=== PATIENT | female | born 1995 | race Two or more races ===

== ENCOUNTER 2024-12-19 04:06 | Inpatient (IN) | payer BC, MEDICAID ==
[2024-12-18 11:35] LABS: Hematocrit 37.1 % (36.0-46.0); Hemoglobin 12.6 g/dL (12.2-16.2); Mean Corpuscular Hemoglobin 29.0 pg (28.0-32.0); Mean Corpuscular Volume 85.4 fL (80.0-100.0)
[2024-12-18 11:36] LABS: Urine Amorphous Crystal FEW /hpf (None Seen); Urine Protein, UAD Negative (Negative)
[2024-12-18 11:50] LABS: INR 0.93 (0.9-1.15); Partial Thromboplastin Time 26.1 SEC (24.5-34.5); Prothrombin Time 9.9 sec (9.3-11.8)
[2024-12-18 11:51] LABS: Amphetamine Screen, Urine Neg (NEGATIVE); Barbiturate Scree,Urine Neg (NEGATIVE); Benzodiazephine Screen, Urine Neg (NEGATIVE); Cannabinoid Screen, Urine Neg (NEGATIVE); Cocaine Screen, Urine Neg (NEGATIVE); Opiate Scree,Urine Neg (NEGATIVE); Phencyclidine Screen, Urine Neg (NEGATIVE)
[2024-12-18 11:52] LABS: Alanine Aminotransferase 21 U/L (7-40); Albumin 4.2 g/dL (3.2-4.8); Anion Gap 11 (5-15); BUN/Creatinine Ratio 10.2 (10.0-20.0); Calcium 10.3 mg/dL (8.7-10.4); Carbon Dioxide 22 mmol/L (20-31); Chloride 106 mmol/L (98-107); Glucose 88 mg/dL (74-106); Potassium 3.5 mmol/L (3.5-5.1); Sodium 139 mmol/L (136-145); Total Protein 6.7 g/dL (5.7-8.2)
[2024-12-18 11:53] LABS: Alkaline Phosphatase 277 U/L (46-116); Bilirubin, Total 0.3 mg/dL (0.2-1.0); Blood Urea Nitrogen 6 mg/dL (9-23)
[2024-12-18 12:01] LABS: Total Cells Counted 100.0 (100)
[~2024-12-19] VITALS: Ht 162.6 cm; Wt 68.0 kg
[2024-12-19] VITALS (16 sets, daily range): BP systolic 109–133; BP diastolic 51–81; PULSE 83–105; RESP 14–21; O2SAT 92–97
[2024-12-19] MEDS ORDERED: LACTATED RINGER'S 1,000 ML IV SCH (04:15)
--- NOTE | 2024-12-19 05:15 | DVH ---
LIMITED OB ULTRASOUND > 14 WKS: HISTORY: lie TECHNIQUE: Multiple real-time grayscale images of the gravid uterus with duplex Doppler color flow an d M-mode spectral analysis. TRANSDUCER: Transabdominal COMPARISON: None Findings/ IMPRESSION: Breech presentation. Anterior placenta. heart rate is 135 beats per minute.
[2024-12-19] MEDS: LACTATED RINGER'S 1,000 ML IV ONE (06:20)
[2024-12-19] MEDS: ceFAZolin 2 GM/D5W50ml 50 ML IV ONE (06:44)
[2024-12-19] MEDS ORDERED: fentaNYL CITRATE 100 MCG/2 ML VL ONE (07:04)
[2024-12-19] MEDS ORDERED: MORPHINE SULF PF 5 MG/10 ML VIAL ONE (07:04)
[2024-12-19] MEDS ORDERED: OXYTOCIN 10UNIT/ML 1ML VIAL ONE (07:06)
[2024-12-19] MEDS ORDERED: ONDANSETRON HCL 4 MG/2 ML VIAL ONE (07:09)
[2024-12-19] MEDS ORDERED: ONDANSETRON HCL 4 MG/2 ML VIAL IV PRN ×2 (07:15→08:30)
[2024-12-19] MEDS: LACT. RINGERS/OXYTOCIN 20UNITS 1,000 ML IV ONE (07:15)
[2024-12-19] MEDS ORDERED: ceFAZolin 1GM/50ML 50 ML IV SCH (07:15)
[2024-12-19] MEDS ORDERED: CARBOPROST TROMETHAMINE 250 MCG/1ML VIAL IM ONE (07:57)
[2024-12-19] MEDS ORDERED: KETOROLAC TROMETH 30 MG/ML 1ML VIAL IV PRN ×2 (08:30→16:45)
[2024-12-19] MEDS ORDERED: NALOXONE HCL 0.4 MG/ML VIAL IV PRN (08:30)
[2024-12-19] MEDS ORDERED: diphenhdrAMINE HCL 50 MG/1 ML VL IV PRN (08:30)
[2024-12-19] MEDS ORDERED: ACETAMINOPHEN IV 100 ML IV ONE (08:49)
[2024-12-19] MEDS: ACETAMINOPHEN IV 1000 MG/100ML (10MG/ML) IV PRN ×2 (09:00→17:47)
--- NOTE | 2024-12-19 13:43 | DVHOP2 ---
Operative Report DATE OF OPERATION: 12/19/24 PREOPERATIVE DIAGNOSES: Term Pregnancyin labor ,breech presentation ,deisres pcs POSTOPERATIVE DIAGNOSES: same SURGEON: Ailyn Buenrostro D.O./moise ANESTHESIOLOGIST: jared TYPE OF ANESTHESIA : spinal CONSENT: The patient was informed of the risks and benefits of the procedure. The patient was informed of the risks and benefits of the procedure. These include but are not limited to , complications of anesthesia, postoperative infection, incomplete relief of symptoms, recurrence of symptoms, damage to blood vessels, nerves and tendons, deep venous thrombosis, pulmonary embolism and possible need for repeat surgery in the future. FINDINGS: Baby [b] with Apgars of [8] and [9]. Grossly normal appearing tubes and ovaries.breech PROCEDURES: Primary low transverse section. PROCEDURE IN DETAIL: The patient was taken to the operating room. She already had an epidural in place. She was then placed in supine position with a leftward tilt. A Pfannenstiel skin incision was made 2 cm above the symphysis pubis. This incision was carried to the underlying layer of fascia. The fascia was nicked in the midline. The incision was extended laterally. The superior aspect of the fascial incision was grasped and elevated. The same procedure was done to the inferior aspect of the fascial incision. The rectus muscles were then in the midline. Peritoneum was identified and entered. Peritoneal incision was extended superiorly and inferiorly with good visualization of the bladder. Bladder blade was inserted. Vesicouterine peritoneum was identified and entered. Lower uterine segment was incised in a transverse fashion. The was delivered from breech presentation. Infant was baby [b] with Apgars [8] and [9]. Placenta was then removed manually. Uterus was exteriorized and cleared of all clots and debris. The incision was repaired using 0 Vicryl in a double-layered fashion. No bleeding was noted. Uterus was then returned to the abdomen. The gutters were cleared off all clots and debris. Peritoneum was closed using 0 Vicryl, fascia was closed using 0 Maxon, and skin was closed using walter. The patient tolerated the procedure well. She was taken to the recovery room in stable condition. ESTIMATED BLOOD LOSS: Estimated blood loss was noted to be 500 mL. Visit Coding OBGYN Date of Service: Dec 19, 2024 Billing Provider: AILYN BUENROSTRO DO ENTRY LEVEL ACCOUNTING CLERK Common Visit Codes: [id number] OBS CARE (HIGH) ENTRY LEVEL ACCOUNTING CLERK Procedure Codes: [id number] DELIVERY ONLY AILYN BUENROSTOR DO Dec 19, 2024 13:43
--- NOTE | 2024-12-19 14:11 | POSTOP ---
Post-Operative Note Post-Operative Note Preop Diagnosis 39wks in labor,breech,desires pcs Postop Diagnosis: same Operation performed pltcs Specimen baby boy,apgars 8-9,breech Anesthesia: Regional Anesthesiologist: coleman Blood Loss(fluid mgmt) 500ml Surgeon Cheyenne Buenrostro Shutdown Coordinator moise Implant na Complications & Mgmt none Date 12/19/24 Time 14:04 Visit Coding OBGYN Date of Service: Dec 19, 2024 Billing Provider: CHEYENNE BUENROSTRO DO RESPIRATORY DIRECTOR Common Visit Codes: [id number] OBS CARE (HIGH) RESPIRATORY DIRECTOR Procedure Codes: [id number] DELIVERY ONLY CHEYENNE BUENROSTRO DO Dec 19, 2024 14:11
--- NOTE | 2024-12-19 14:14 | DVHHP2 ---
OB CC & HPI Date Date of Admission: Dec 19, 2024 Patient Identification: : 1 Para: 0 EDC: Dec 26, 2024 EGA: 39wks Chief Complaints: Reason for admission: active labor Indication for : other (desoires pcs for breech) Admission Nurse Assessment Rev: No History of Present Complaints pt is admitted for pcs due to breech ,she is in early labor .all options d/w pt including ecv ,pt wishes to proceed with pcs Past Medical History Cardiac: No pertinent Hx Pulmonary: No pertinent Hx Central Nervous System: No pertinent Hx GI: No pertinent Hx Hemotology/Oncology: No pertinent Hx Hepatobiliary: No pertinent Hx Psychiatric: No pertinent Hx Musculoskeletal: No pertinent Hx Rheumotologic: No pertinent Hx Infectious Disease: No peritnent Hx ENT: No pertinent Hx Renal/: No pertinent Hx Endocrine: No pertinent Hx Dermatology: No pertinent Hx Past Surgical History: No pertinent Hx OB History OB History Care: Good Care Ultrasounds: Normal mid trimester US Obstetrical Complications: None Medical Complications: None Allergies: Coded Allergies: NO KNOWN ALLERGIES (Unverified , 12/19/24) Current Medications Current Medications Medications (Trade) Dose Ordered Sig/Gian Route PRN Reason Start Time Stop Time Status Last Admin Lactated Ringer's 1,000 ml @ 125 mls/hr Q8H IV 12/19/24 04:15 Ondansetron HCl (Zofran) 4 mg Q4HP PRN IV NAUSEA / VOMITING 12/19/24 07:15 Cefazolin Sodium 50 ml @ 100 mls/hr Q8H IV 12/19/24 07:15 12/19/24 12:23 DC Diphenhydramine HCl (Benadryl Injection) 25 mg Q4HP PRN IV FOR ITCHING 12/19/24 08:30 Ondansetron HCl (Zofran) 4 mg Q4HP PRN IV NAUSEA / VOMITING 12/19/24 08:30 12/19/24 12:00 DC Naloxone HCl (Narcan) 0.2 mg Q5M PRN IV For respirations < than 10/min 12/19/24 08:30 12/19/24 08:49 DC Dexamethasone Sodium Phosphate (Decadron Injection) 10 mg SEO STRATEGIST PRN IV FOR ITCHING 12/19/24 08:30 12/19/24 08:49 DC Ketorolac Tromethamine (Toradol Injection) 30 mg Q6HP PRN IV MODERATE PAIN (4-6 PAIN SCALE) 12/19/24 08:30 12/24/24 08:29 Acetaminophen (Ofirmev) 1,000 mg [id number] PRN IV PAIN SCALE 1-3 OR TEMP>100.4 12/19/24 09:00 12/19/24 09:00 DC 12/19/24 09:00 Cefazolin Sodium 50 ml @ 100 mls/hr Q8H IV 12/19/24 15:15 12/20/24 07:44 Acetaminophen (Ofirmev) 1,000 mg Q8HPRN PRN IV PAIN SCALE 1-3 OR TEMP>100.4 12/19/24 12:30 12/20/24 06:01 Family & Social History Family/Social History Blood Type: Unknown Rubella: unknown RPR/VDRL: Negative GBS Status: Negative HBsAG: Negative Review of Systems Constitutional: No symptom reported Ears, Nose, & Throat: No symptom reported Eyes: No symptom reported Pulmonary/Respiratory: No symptom reported Cardiovascular: No symptom reported Gastrointestinal: No symptom reported Genitourinary: No symptom reported Musculoskeletal: No symptom reported Skin: No symptom reported Psychiatric: No symptom reported Endocrine: No symptom reported Hemotologic/Lymphatic: No symptom reported OB Admission Exam Physical Exam Vitals: Vital Signs Date Time Temp Pulse Resp B/P (MAP) Pulse Ox O2 Delivery O2 Flow Rate FiO2 12/19/24 09:10 82 15 121/69 (86) 97 12/19/24 08:21 Room Air 12/19/24 08:21 94 12/19/24 08:21 97.2 97.2 HEENT: TMs Normal, Fontanelles Normal, Nasal Mucosa Normal, Eyes non-injected, Oropharynx Normal, PERRLA, Moist Membranes, EOMI Heart: Rhythm Normal Lungs: Clear Abdomen: Non tender Extremities: Normal Reflexes: Normal Cervical Dilatation: 1cm Effacement: 25% Station: -2 Membranes: Intact Heart Rate: 130's Accelerations: Accelerations Present Decelerations: No Decelerations Short Term Variability: Present Fci Variability: Average (6-25) Contractions on Admission: < 5 Minutes Apart Intensity: Moderate OB Plan Plan Admitting Diagnosis: primary csection for breech presentation 39wks in early labor Plan: Section Other Plan: infpormed consent obtained Visit Coding OBGYN Date of Service: Dec 19, 2024 Billing Provider: CHEYENNE NGO DO MANAGER LOGISTIC Common Visit Codes: [id number] OBS CARE (HIGH) MANAGER LOGISTIC Procedure Codes: 94286-87- NON-STRESS TEST CHEYENNE NGO DO Dec 19, 2024 14:14
[2024-12-19] MEDS ORDERED: DOCU-94 PO (14:55)
[2024-12-19] MEDS ORDERED: HYDR-4072 PO (14:55)
[2024-12-19] MEDS ORDERED: IBUP-1456 PO ×2 (14:55→23:47)
[2024-12-19] MEDS: ceFAZolin 1GM/50ML 50 ML IV SCH (15:19)
[2024-12-19] MEDS: SIMETHICONE 80 MG CHEWABLE TABLET PO SCH (17:34)
[2024-12-19] MEDS: PSEUDOEPHEDRINE HCL 30 MG TAB PO ONE (17:34)
[2024-12-19 21:43] LABS: Hematocrit 29.7 % (36.0-46.0); Hemoglobin 10.0 g/dL (12.2-16.2); Mean Corpuscular Hemoglobin 28.7 pg (28.0-32.0); Mean Corpuscular Volume 84.9 fL (80.0-100.0); Nucleated Red Blood Cells % 0.0 %
[2024-12-19] MEDS ORDERED: PREN-96 PO (23:47)
[2024-12-19] MEDS ORDERED: FER325T PO (23:47)
[2024-12-20] VITALS (11 sets, daily range): BP systolic 108–131; BP diastolic 52–81; PULSE 85–98; RESP 15–18; TEMP 98–98.5; O2SAT 97–99
--- NOTE | 2024-12-20 00:05 | DVHPN2 ---
Progress Note Date Seen: Dec 20, 2024 Subjective S: bleeding is less, advancing diet as tolerated, denies lightheaded/dizziness, pain well controlled with medications, no concerns with urinating, no flatus/BM yet, ambulating well, well vital signs Vital Sign Date Time Temp Pulse Resp B/P (MAP) Pulse Ox O2 Delivery O2 Flow Rate FiO2 12/19/24 19:31 90 16 97 12/19/24 18:30 Room Air 12/19/24 09:30 0.0 12/19/24 09:10 121/69 (86) 12/19/24 08:21 94 12/19/24 08:21 97.2 97.2 Total Intake and Output 12/19/24 12/19/24 12/20/24 15:00 23:00 07:00 Output Total 875 ml 200 ml Balance -875 ml -200 ml medications Current Medications Medications Dose Ordered Sig/Gian Route Start Time Stop Time Status Last Admin Dose Admin Lactated Ringer's 1,000 ml @ 125 mls/hr Q8H IV 12/19/24 04:15 Ondansetron HCl 4 mg Q4HP PRN IV 12/19/24 07:15 Diphenhydramine HCl 25 mg Q4HP PRN IV 12/19/24 08:30 Ketorolac Tromethamine 30 mg Q6HP PRN IV 12/19/24 08:30 12/24/24 08:29 Cancel Cefazolin Sodium 50 ml @ 100 mls/hr Q8H IV 12/19/24 15:15 12/20/24 07:44 12/19/24 23:21 100 MLS/HR Acetaminophen 1,000 mg Q8HPRN PRN IV 12/19/24 12:30 12/20/24 06:01 12/19/24 17:47 1,000 MG Ketorolac Tromethamine 30 mg Q6HPRN PRN IV 12/19/24 16:45 12/24/24 16:44 Dimethicone 80 mg QID PO 12/19/24 18:00 12/19/24 22:12 80 MG laboratory and microbiology Laboratory Tests 12/19/24 21:23 12/18/24 11:05 Test 12/18/24 11:05 Range/Units Serum Glucose 88 74-106 mg/dL Objective O: VSS Chest: heart sounds normal and lung sounds clear bilaterally Abd: soft, non-tender, fundus at U/firm/midline, active bowel sounds, no rebound or guarding Incision: sylke dressing open to air, clean/dry/intact Ext: Non-tender, No edema, 2+ BLE DTRs Lochia: minimal See lab results Problems(with codes): (1) Precipitous drop in hematocrit (2) S/P primary low transverse Assessment/Plan A: 29yo now POD#1 s/p primary for breech -continue with routine post-op PP care Plan discussed with: Patient, Spouse Visit Coding OBGYN Date of Service: Dec 20, 2024 Billing Provider: MER PARKER CNM BUSHING PRESS OPERATOR Common Visit Codes: [id number] INP/OBS CARE(HIGH) MER PARKER CNM Dec 20, 2024 00:05
[2024-12-20] MEDS ORDERED: BISACODYL 10 MG RECT SUPP PR PRN (07:30)
[2024-12-20] MEDS ORDERED: HYDROcodone-ACET 5/325MG TAB PO PRN (07:30)
[2024-12-20] MEDS: HYDROcodone-ACET 5/325MG TAB PO PRN (08:29)
[2024-12-20 09:34] LABS: Hematocrit 29.2 % (36.0-46.0); Hemoglobin 9.7 g/dL (12.2-16.2); Mean Corpuscular Hemoglobin 28.5 pg (28.0-32.0); Mean Corpuscular Volume 85.4 fL (80.0-100.0); Nucleated Red Blood Cells % 0.0 %
[2024-12-20] MEDS: DOCUSATE SOD 100 MG CAP PO SCH (10:46)
[2024-12-20] MEDS: IBUPROFEN 800 MG TAB PO PRN (16:52)
--- NOTE | 2024-12-20 18:48 | DVHINCON2 ---
Date of Service if different f: Dec 20, 2024 Time of Service: 18:48 Consultation (CHATAIGNIER) Labs Laboratory Tests Test 12/18/24 11:00 12/18/24 11:05 12/20/24 08:43 Urine Color Light-yellow (Yellow) Urine Clarity Turbid (Clear) Urine pH 7.5 (5.0-9.0) Urine Specific [place] 1.010 (1.001-1.035) Urine Protein Negative (Negative) Urine Ketones Negative (Negative) Urine Blood Negative /uL (Negative) Urine Nitrite Negative (Negative) Urine Bilirubin Negative (Negative) Urine Urobilinogen Normal mg/dL (Negative) Urine Leukocyte Esterase Negative /uL (Negative) Urine RBC 3 /hpf (0 - 4) Urine Microscopic WBC 3 /HPF (0-5) Urine Squamous Epithelial Cells Few /hpf (<5) Urine Amorphous Crystals Few /hpf (None Seen) Urine Bacteria None seen /hpf (None Seen) Urine Glucose Normal mg/dL (Normal) Urine Opiates Screen Neg (NEGATIVE) Urine Fentanyl Screen Neg (NEGATIVE) Urine Barbiturates Screen Neg (NEGATIVE) Urine Phencyclidine Screen Neg (NEGATIVE) Urine Amphetamines Screen Neg (NEGATIVE) Urine Benzodiazepines Screen Neg (NEGATIVE) Urine Cocaine Screen Neg (NEGATIVE) Urine Cannabinoids Screen Neg (NEGATIVE) Differential Total Cells Counted 100.0 (100) Neutrophils % (Manual) 76 (37.0-80.0) Band Neutrophils % (Manual) 1 Lymphocytes % (Manual) 14 (10.0-50.0) Monocytes % (Manual) 5 (0-12) Eosinophils % (Manual) 4 (0-7) Basophils % (Manual) 0 (0.0-2.0) Metamyelocytes % (manual) 0 Myelocytes % (Manual) 0 Promyelocytes % (Manual) 0 Blast Cells % (Manual) 0 Reactive Lymphocytes 0 Platelet Estimate Adequate Prothrombin Time 9.9 sec (9.3-11.8) Prothromb Time International Ratio 0.93 (0.9-1.15) Activated Partial Thromboplast Time 26.1 SEC (24.5-34.5) Sodium Level 139 mmol/L (136-145) Potassium Level 3.5 mmol/L (3.5-5.1) Chloride Level 106 mmol/L (98-107) Carbon Dioxide Level 22 mmol/L (20-31) Anion Gap 11 (5-15) Blood Urea Nitrogen 6 mg/dL (9-23) Creatinine 0.59 mg/dL (0.550-1.02) Glomerular Filtration Rate Calc 126 mL/min (>90) BUN/Creatinine Ratio 10.2 (10.0-20.0) Serum Glucose 88 mg/dL (74-106) Calcium Level 10.3 mg/dL (8.7-10.4) Total Bilirubin 0.3 mg/dL (0.2-1.0) Aspartate Amino Transf (AST/SGOT) 23 U/L (13-40) Alanine Aminotransferase (ALT/SGPT) 21 U/L (7-40) Alkaline Phosphatase 277 U/L (46-116) Total Protein 6.7 g/dL (5.7-8.2) Albumin 4.2 g/dL (3.2-4.8) Treponema pallidum Antibody Non-reactive (Negative) Hepatitis C Antibody Negative (Negative) White Blood Count 14.0 10^3/uL (4.4-10.8) Red Blood Count 3.42 10^6/uL (4.0-5.20) Hemoglobin 9.7 g/dL (12.2-16.2) Hematocrit 29.2 % (36.0-46.0) Mean Corpuscular Volume 85.4 fL (80.0-100.0) Mean Corpuscular Hemoglobin 28.5 pg (28.0-32.0) Mean Corpuscular Hemoglobin Concent 33.4 g/dL (32.0-36.0) Red Cell Distribution Width 15.6 % (11.8-14.3) Platelet Count 205 10^3/uL (140-450) Mean Platelet Volume 9.4 fL (6.9-10.8) Neutrophils (%) (Auto) 80.9 % (37.0-80.0) Lymphocytes (%) (Auto) 13.9 % (10.0-50.0) Monocytes (%) (Auto) 4.5 % (0.0-12.0) Eosinophils (%) (Auto) 0.5 % (0.0-7.0) Basophils (%) (Auto) 0.2 % (0.0-2.0) Neutrophils # (Auto) 11.3 10 ^3/uL (1.6-8.6) Lymphocytes # (Auto) 2.0 10 ^3/uL (0.4-5.4) Monocytes # (Auto) 0.6 10 ^3/uL (0-1.3) Eosinophils # (Auto) 0.1 10 ^3/uL (0-0.8) Basophils # (Auto) 0 10 ^3/uL (0-0.2) Nucleated Red Blood Cells 0.0 % Vitals Vital Signs Date Time Temp Pulse Resp B/P (MAP) Pulse Ox O2 Delivery O2 Flow Rate FiO2 12/20/24 15:00 98.3 85 16 111/58 (75) 97 98.3 12/20/24 07:15 Room Air 12/19/24 09:30 0.0 12/19/24 08:21 94 Current medications Current Medications Medications Dose Ordered Sig/Gian Route Start Time Stop Time Status Last Admin Dose Admin Lactated Ringer's 1,000 ml @ 125 mls/hr Q8H IV 12/19/24 04:15 Ondansetron HCl 4 mg Q4HP PRN IV 12/19/24 07:15 Diphenhydramine HCl 25 mg Q4HP PRN IV 12/19/24 08:30 Ketorolac Tromethamine 30 mg Q6HP PRN IV 12/19/24 08:30 12/24/24 08:29 Cancel Dimethicone 80 mg QID PO 12/19/24 18:00 12/20/24 12:32 80 MG Docusate Sodium 100 mg Q12HR PO 12/20/24 10:00 12/20/24 10:46 100 MG Bisacodyl 10 mg DAILYP PRN MI 12/20/24 07:30 Ibuprofen 800 mg Q8HP PRN PO 12/20/24 07:30 12/20/24 16:52 800 MG Acetaminophen/ Hydrocodone Bitart 1 tab Q4HPRN PRN PO 12/20/24 07:30 Acetaminophen/ Hydrocodone Bitart 2 tab Q4HPRN PRN PO 12/20/24 07:30 12/20/24 12:32 2 TAB PSYCHIATRY CONSULTATION INITIAL EVALUATION REASON FOR CONSULT: Pt questionnaire score preempted Psychiatric consultation HPI: Pt says this is her first child. She did not expect to have a . She was sad due to this so this informed how she answered the questionnaire. She recalls being anxious, worried. [place] a little defeated knowing she was going to have a . Pt now is in better spirits and can reason that there were clear reasons why she needed a , and things could have gone wrong otherwise. She is happy she and baby are healthy. Currently, mood is good. Pt denies SI. Her and family are supportive, and she has had a good post- period. PSYCHIATRIC HISTORY: DIAGNOSIS: None prior ADMISSIONS: None prior MEDICATION TRIALS: None prior OUTPATIENT CARE: None prior THERAPY: None prior SI/SELF-INJURY/SUICIDE ATTEMPT: None prior. No access to firearms. 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 . 1st child. Families are local. Will take time from work. ALLERGIES: None MENTAL STATUS EXAMINATION: The patient is a 29-year-old woman evaluated on the L&D service. She is alert and oriented to person, place, and time. Behavior is cooperative and appropriate. Appearance is well-groomed. Speech is normal in rate, volume, and tone. Mood is described as good, with full and congruent affect. Thought processes are logical and goal-directed. Thought content is without delusions, hallucinations, or suicidal ideation. Insight and judgment are intact. No psychomotor agitation or retardation is observed. DIAGNOSIS: Adjustment Disorder, unspecified (transient, situational emotional response) ASSESSMENT: 29-year-old woman, first-time mother, with no prior psychiatric history, evaluated due to an elevated screening score. The emotional response was linked to the unexpected need for a section. The patient expressed initial feelings of sadness, anxiety, and disappointment at the deviation from her anticipated birthing plan. However, she now demonstrates understanding of the clinical necessity of the procedure, and expresses gratitude for the health of both herself and her . Her mood has improved, and she denies any depressive or psychotic symptoms. She also denies suicidal ideation, and reports strong familial and spousal support. There are no current psychiatric symptoms that meet criteria for Major Depressive Disorder or any other primary mood disorder at this time. RECOMMENDATIONS: -No indication for outpatient mental health referral at this time. -Provided anticipatory guidance regarding the normal range of emotional experiences in the period, including baby blues, mood fluctuations, and fatigue. -Educated patient on signs and symptoms that warrant further evaluation, including persistent low mood, anhedonia, thoughts of self-harm or harm to others, or significant functional impairment. -Encouraged patient to seek support from family, her medical team, or mental health services if concerning symptoms arise. -No follow-up with psychiatry indicated unless symptoms change. DA DANIEL MD Dec 20, 2024 18:48
--- NOTE | 2024-12-20 23:34 | DVHPN2 ---
Progress Note Date Seen: Dec 20, 2024 Subjective Lochia minimal. Regular diet well tolerated. Ambulating and voiding well w/o feeling dizzy or lightheaded. Pain relieved with oral analgesics. Passing flatus but no BM yet. w/o problem Desires / Requests to be discharged tomorrow vital signs Vital Sign Date Time Temp Pulse Resp B/P (MAP) Pulse Ox O2 Delivery O2 Flow Rate FiO2 12/20/24 22:50 98.5 94 16 131/76 (94) 97 98.5 12/20/24 19:15 Room Air 12/19/24 09:30 0.0 12/19/24 08:21 94 Total Intake and Output 12/19/24 12/19/24 12/20/24 15:00 23:00 07:00 Output Total 875 ml 900 ml Balance -875 ml -900 ml medications Current Medications Medications Dose Ordered Sig/Gian Route Start Time Stop Time Status Last Admin Dose Admin Lactated Ringer's 1,000 ml @ 125 mls/hr Q8H IV 12/19/24 04:15 Ondansetron HCl 4 mg Q4HP PRN IV 12/19/24 07:15 Diphenhydramine HCl 25 mg Q4HP PRN IV 12/19/24 08:30 Ketorolac Tromethamine 30 mg Q6HP PRN IV 12/19/24 08:30 12/24/24 08:29 Cancel Dimethicone 80 mg QID PO 12/19/24 18:00 12/20/24 22:07 80 MG Docusate Sodium 100 mg Q12HR PO 12/20/24 10:00 12/20/24 22:07 100 MG Bisacodyl 10 mg DAILYP PRN [place] 12/20/24 07:30 Ibuprofen 800 mg Q8HP PRN PO 12/20/24 07:30 12/20/24 16:52 800 MG Acetaminophen/ Hydrocodone Bitart 1 tab Q4HPRN PRN PO 12/20/24 07:30 Acetaminophen/ Hydrocodone Bitart 2 tab Q4HPRN PRN PO 12/20/24 07:30 12/20/24 12:32 2 TAB laboratory and microbiology Laboratory Tests 12/20/24 08:43 12/18/24 11:05 Test 12/18/24 11:05 Range/Units Serum Glucose 88 74-106 mg/dL Objective A&O x3 NAD. Afebrile, VSS Chest: heart and lung sounds normal. Breasts: Nipples intact w/o cracks or soreness Abdomen: normal BS, soft, non-tender, no rebound or guarding, fundus firm @ U- 1, Lower abdominal Incision site with dressing on, dry and intact. No edema, erythema or induration Extremities: no edema or tenderness Lochia - minimal [place]: 12 Problems(with codes): (1) S/P primary low transverse (2) Precipitous drop in hematocrit Assessment/Plan 29 yo now Post operative & ppd #1 s/p Primary Section for breech presentation doing well. Blood Type: A+ Breast feeding Rubella Immune Pain control with oral medications Bowel regimen: Increase fluid intake and fiber in diet, Laxative PRN Discharge plan: -Continue taking PO pain medication as needed -May discharge home tomorrow if condition remains stable -Extensively discussed PP self-care, warning signs of hemorrhage, pre-e, or depression. Answered all patient questions and concerns. Patient verbalizes understanding. Plan discussed with: Patient, Spouse Visit Coding OBGYN Date of Service: Dec 20, 2024 Billing Provider: STEPHANIE MARIE CNM STAMPER BLOCKER Common Visit Codes: 01759-KRP/OBS SAME DATE (LOW) STAMPER BLOCKER Procedure Codes: [id number] W/ CARE STEPHANIE MARIE CNM Dec 20, 2024 23:34
[2024-12-21 03:00] VITALS: BP 119/64; PULSE 85; RESP 16; TEMP 98.5; O2SAT 98
--- NOTE | 2024-12-21 03:59 | DVHDS2 ---
Obstetrics Discharge Summary Obstetrics Discharge Summary Date of Admission: Dec 19, 2024 Date of Discharge: Dec 21, 2024 Reason For Admission: Section (Primary) Intrapartum Procedures: (Low Cervical Transverse for breech presentation) Procedures: Hct/date: (29.2), Hgb/date: (9.7) Operative Complicat: None Discharge Diagnosis: Term -Delivered Discharge Information: Activity (Unrestricted. Advance as tolerated. Balance activities with rest periods. No heavy lifting, pushing or straining. Pelvic rest x 6weeks), Diet (Routine. Regular diet rich in fiber, protein, iron, and vitamin C with adequate fluid intake), Medications (Ibuprofen 600mg every 6 hours as needed for pain. Colace 100mg twice a day. Continue vitamin and iron), Discharge to (Home), Accompanied by (Partner), Discarge date (12/21/24) Discharge Care Plan Instructions -Post operative and self care instructions given. - emergency signs and symptoms including but not limited to pre-eclampsia precautions and signs of infection, PPH & of PPD reviewed with patient. -Follow up with OB Provider in 1 week Visit Coding OBGYN Date of Service: Dec 21, 2024 Billing Provider: STEPHANIE MARIE CNM MENTAL HEALTH NURSE PRACTITIONER Common Visit Codes: 82913-OEM/OBS DISCH DAY <30MIN STEPHANIE MARIE CNM Dec 21, 2024 03:59
[2024-12-21 06:30] VITALS: BP 120/69; PULSE 88; RESP 18; TEMP 98.4; O2SAT 96
== END 2024-12-21 10:25 | disposition home or self-care (01) | DRG 788 ==
LOC: EDUNIT# → LDRP 04:06 → OBSVTOIN 04:07 → LDRP 08:50
PROVIDERS: ADMIT Obstetrics & Gynecology; ATTEND Obstetrics & Gynecology
PROC: 10D00Z1 Extraction of Products of Conception, Low, Open Approach (ICD-10-PCS; principal; 2024-12-19 07:14)
DX: O32.1XX0 Maternal care for breech presentation, not applicable or unspecified (principal); Z37.0 Single live birth; Z3A.39 39 weeks gestation of pregnancy; F43.22 Adjustment disorder with anxiety; O99.344 Other mental disorders complicating childbirth
CPT/HCPCS: 36415; 59025; 76815; 80053; 80307; 81001; 85007; 85025; 85027; 85610; 85730; 86780; 86803; 86850; 86900; 86901; 94760; 94762; 96360; 96361; 96365; 96366; G0378; J0131; J1100; J2405